=== PATIENT | female | born 2000 | race Caucasian/White ===

== ENCOUNTER 2019-09-18 07:00 | Inpatient (IN) | payer MEDICAID, SELFPAY ==
[2019-09-18] VITALS (128 sets, daily range): BP systolic 0–162; BP diastolic 0–110; PULSE 68–116; RESP 16–20; TEMP 36.5–37.2; O2SAT 89–100; BMI 30.2; BMI 29.0
[2019-09-18 06:59] LABS: Basophils % 0.1 %; Eosinophils # 0.1 10^3/uL (0.0-0.8); Eosinophils % 0.4 %; Hemoglobin 9.9 g/dL (11.5-15.3); Lymphocytes # 2.1 10^3/uL (0.8-4.8); Lymphocytes % 14.3 %; Mean Corpuscular HGB Conc 31.9 g/dL (30.0-36.0); Mean Corpuscular Hemoglobin 28.2 pg (28.0-34.0); Mean Corpuscular Volume 88.3 fL (81-99); Mean Platelet Volume 12.2 fL (7.4-10.4); Monocytes # 0.7 10^3/uL (0.2-0.9); Monocytes % 4.8 %; Neutrophils # 11.8 10^3/uL (1.8-7.7); Neutrophils % 79.9 %; Nucleated Red Blood Cells % 0 %; Platelet Count 249 10^3/cmm (130-400); Red Blood Count 3.51 10^6/uL (4.1-5.3); Red Cell Distribution Width 12.5 % (12.1-15.1); White Blood Count 14.8 10^3/uL (4.0-10.0)
[2019-09-18] MEDS: fentaNYL 50 mcg/mL INJ 2mL IV (07:02)
[2019-09-18] MEDS: ampicillin 2,000 MG in sodium chloride 0.9% (plus) 50 ML 100 MG IV (07:40)
[2019-09-18] MEDS: dextrose 5%-lactated ringers 1,000 ML 125 ML IV (07:40)
[2019-09-18] MEDS: lactated ringers 1,000 ML 999 ML IV (09:13)
[2019-09-18] MEDS: ondansetron 2 mg/ML SDV 2 mL 4 MG IVP (10:06)
--- NOTE | 2019-09-18 10:43 | P.ANES_ITS ---
Pre-Anesthetic Assessment Pre-Anesthetic Assessment: Height/Weight: Height 1.57 m Weight 72.121 kg Temp Pulse Resp BP Pulse Ox 98.6 F 86 20 H 130/83 100 09/18/19 06:08 09/18/19 10:40 09/18/19 07:02 09/18/19 10:40 09/18/19 10:40 Preop Diagnosis: labor pain Proposed Procedure: epidural Familial anesthetic complications: none specified Social: Social History: No alcohol and No tobacco Exam: Pre-Anes Outpt Exam: alert, oriented x 3, clear to auscultation bilaterally and regular rate & rhythm Airway: Submandibular: WNL Cervical ROM: WNL MP: 2 Dentition: Chipped History/ROS: Other Pulmonary: Pulmonary: None reported CV/HEM: CV/HEM: None reported : : None reported Hepatic: Hepatic: None reported GI: GI: None reported Metabolic: Metabolic: None reported Musc/skel: Musc/skel: Lower Back Pain (with ) Neuropsych: Neuropsych: None reported Anesthetic Plan: ASA status: II Anesthesia: Regional (specify below) (epidural) Risk of > 500 ml blood loss (7ml/kg in children): No Other Pertinent Information: assessment done prior to placement but could not be documented before due to time sensitive need for epidural Meds/Allergies Current Medications: Current Medications Generic Name Dose Route Start Last Admin Trade Name Freq PRN Reason Stop Dose Admin Fentanyl 25 - 100 mcg 09/18/19 06:07 09/18/19 07:02 Sublimaze IV 25 mcg Q1H PRN Administration SEVERE PAIN Dextrose/Lactated Ringer's 1,000 mls @ 125 m ls/hr 09/18/19 06:15 09/18/19 09:13 Dextrose 5%-Lact ated Ringers IV 0 mls/hr .Q8H GODFREY Infusion Lactated Ringer's 1,000 mls @ 999 m ls/hr 09/18/19 06:07 09/18/19 09:13 Lactated Ringers IV 999 mls/hr .Q1H1M PRN Administration Per L&D Rescitati on Protocol Ampicillin Sodium 2,000 mg/ 50 mls @ 100 mls/ hr 09/18/19 07:45 09/18/19 07:40 Sodium Chloride IV 100 mls/hr ONCE GOFDREY Administration Protocol Ondansetron HCl 4 mg 09/18/19 06:07 09/18/19 10:06 Zofran IVP 4 mg Q4H PRN Administration NAUSEA AND VOMITI NG PFSH Anesthesia Female Reproductive History: : 1 Data Anesthesia CBC & Chem 7: 09/18/19 06:45 Other Labs: Laboratory Results - last 48 hr 09/18/19 06:45 WBC 14.8 H RBC 3.51 L Hgb 9.9 L Hct 31.0 L MCV 88.3 MCH 28.2 MCHC 31.9 RDW 12.5 Plt Count 249 MPV 12.2 H Neut % (Auto) 79.9 Lymph % (Auto) 14.3 [place] % (Auto) 4.8 Eos % (Auto) 0.4 Baso % (Auto) 0.1 Neut # (Auto) 11.8 H Lymph # (Auto) 2.1 [place] # (Auto) 0.7 Eos # (Auto) 0.1 Baso # (Auto) 0.0 Nucleated RBC % (auto) 0 Nucleated RBCs # 0.0 Cardiac Studies: No Data to Display
--- NOTE | 2019-09-18 10:45 | ANES.PROC ---
Anesthesia Procedures Procedure/Date: 09/18/19 epidural Procedure Narrative: epidural complete, bolus given, epidural pump initiated with SUPERVISOR FINE GRADING education given, vitals taken using OBIX system and satisfactory throughout, patient admits to decreased pain, report of procedure to OB RN Epidural: Time Out Performed: Yes Consents Signed: Procedure Consent Consent: from patient, from other, risks and benefits reviewed and patient agrees to proceed Lumbar Level: L3-L4 Epidural position: sitting Epidural procedure: sterile prep of area, 1% lidocaine to numb the area, 18 g needle, negative for paresthesia passed, neg for paresthesia, test dose given, 1.5% xylocaine 1:200k epi (5mL), 0.2% Ropivacaine bolus ml (5mL), placed PCEA, no systemic response, sterile dressing applied, L.U.D. no apparent complications and 0.2% Ropiavacaine @ mls/hr (13mL/Hr)
[2019-09-18] MEDS: ampicillin 1,000 MG in sodium chloride 0.9% (plus) 50 ML 100 MG IV (11:16)
--- NOTE | 2019-09-18 14:47 | P.PCNOB_ITS ---
Delivery Note: Date of delivery: 09/18/19 Pre-Delivery Course: The patient presented to the hospital in active labor. An amniotomy was performed. She was placed on GBS protocol. She received 2 doses of antibiotics. She progressed to complete without difficulty. Delivery: DELIVERY: The patient progressed to complete without difficulty. She delivered a male with a weight of 7 pounds 4 ounces with Apgars of 9, 9. The baby was delivered from the JAIRO position. The baby's mouth and nose were suctioned after the infant was delivered and placed on the mother's abdomen. The cord was then clamped and cut. There was no nuchal cord. There was no meconium. The placenta and 3 vessel cord were delivered intact shortly thereafter. The perineum and vaginal vault were carefully examined. There were superficial lacerations on both the left and right vaginal wall as well as the posterior vaginal vault. The laceration in the posterior vaginal vault stopped bleeding with gentle pressure. No repair was required.. Both the mother and the baby were in stable condition. A&P Assessment and plan (1) 39 weeks gestation of : Status: Acute Code(s): Z3A.39 - 39 weeks gestation of (2) Status post vaginal delivery: I anticipate routine care. The patient should be able go home tomorrow afternoon if she has an unremarkable course. Status: Acute (3) Positive GBS test: Status: Acute Code(s): B95.1 - Streptococcus, group B, as the cause of diseases classified elsewhere Coding Level of Care Code Acute Javascript Engineer for Chg Fwd Diagnoses 39 weeks gestation of Z3A.39 Status post vaginal delivery Positive GBS test B95.1
[2019-09-18] MEDS: oxytocin 30 UNIT/500 ML BAG 600 UNIT IV (15:21)
[2019-09-18] MEDS: docusate sodium 100 mg Capsule PO (17:36)
[2019-09-18] MEDS: benzocaine-menthol 78 gm Canister 1 SPRAY TOPICAL (17:37)
[2019-09-18] MEDS: lanolin oint 7 gm 1 APPLIC TOPICAL (17:38)
[2019-09-19 00:25] VITALS: BP 107/48; PULSE 106; RESP 18
[2019-09-19 03:15] LABS: Hematocrit 26.2 % (37.0-47.0); Hemoglobin 8.6 g/dL (11.5-15.3); Mean Corpuscular HGB Conc 32.8 g/dL (30.0-36.0); Mean Corpuscular Hemoglobin 29.1 pg (28.0-34.0); Mean Corpuscular Volume 88.5 fL (81-99); Platelet Count 209 10^3/cmm (130-400); Red Blood Count 2.96 10^6/uL (4.1-5.3); Red Cell Distribution Width 12.6 % (12.1-15.1); White Blood Count 15.1 10^3/uL (4.0-10.0)
[2019-09-19 04:30] VITALS: BP 112/73; PULSE 101; RESP 16; TEMP 36.6
--- NOTE | 2019-09-19 08:41 | PM.OBGYDC ---
Discharge Providers PROPERTY COORDINATOR Date of Admission: 09/18/19 07:00 Date of Discharge: 09/19/19 Attending Provider at Admission: Carmine Chavez MD Attending Provider at Discharge: Carmine Chavez MD Primary Care Provider: Carmine Chavez MD Diagnoses at Discharge Discharge Diagnosis (1) 39 weeks gestation of : Status: Acute (2) Status post vaginal delivery: Status: Acute (3) Positive GBS test: Status: Acute Reason for Visit Reason for Visit: Reason For Visit: CONTRACTIONS Hospital Course Hospital Course: The patient presented with contractions. She was noted to be in active labor. She received an epidural. She progressed to complete and had an unremarkable vaginal delivery. Her course was also unremarkable. She has been breast-feeding with the assistance of the nurses. She has been doing better with a nipple shield. Her bleeding has been within normal limits. Her pain is been well controlled. Information Peripartum Data: Delivery Method: Vaginal Physical Exam Narrative: EXAM NARRATIVE: The patient is alert. She appears comfortable. Her heart has a regular rate and rhythm with no murmurs appreciated. Lungs are clear to auscultation bilaterally. Her fundus is firm and below the umbilicus. Discharge Data Data Completed and Pending: Labs from last 24 hours 09/19/19 03:05 WBC 15.1 H RBC 2.96 L Hgb 8.6 L Hct 26.2 L MCV 88.5 MCH 29.1 MCHC 32.8 RDW 12.6 Plt Count 209 MPV 12.0 H Vitals: Last Vital Signs Temp 97.8 F 09/19/19 04:30 Pulse 101 H 09/19/19 04:30 Resp 16 09/19/19 04:30 BP 112/73 09/19/19 04:30 Pulse Ox 97 09/18/19 22:25 Discharge Plan Discharge Patient Disposition: Home, Self-Care Condition: Stable Prescriptions: New ibuprofen 800 mg Tablet 800 mg PO TID Qty: 45 RF: 0 FeroSul 325 mg (65 mg iron) tablet 325 mg PO DAILY Qty: 90 RF: 0 Continued Tylenol Extra Strength 500 mg Tablet 500 mg PO Q4H PRN (Reason: Pain) RF: 0 28 mg iron- 800 mcg Tablet 800 tab PO DAILY RF: 0 Discharge Orders: Discharge Order (Routine); Ordered 09/19/19 Ordered By: Carmine Chavez Referrals: Carmine Chavez MD [Primary Care Provider] - 6 Weeks (Please call [facility] at [phone] first thing Friday September 20, 2019 to schedule your 6 week follow up visit with Dr. Chavez. Your appointment will need to be 6 weeks from your delivery date.) Discharge Diet: Regular Discharge Activity: Limit activity as instructed Patient Instructions: , Formula Feeding, Perineal Care (DC), Your Baby (DC), and the Working Mom (DC), Expression, Collection and Storage of Breastmilk (DC), How to Hold and Breastfeed Your Baby (DC), and Nipple Soreness (DC), Breast Fullness Versus Breast Engorgement (DC), and Plugged Ducts (DC), Vaginal Delivery (DC), Bleeding (DC), OB Discharge Report, OB Food/Drug Interaction Guide, OB Care at Home, Depression Discharge Date/Time: 09/19/19 18:40 Discharge Attestations PROPERTY COORDINATOR Time Spent in Discharge Care*: less than 30 min Coding Level of Care Code Acute Manager Deli for Chg Fwd Diagnoses 39 weeks gestation of Z3A.39 Status post vaginal delivery Positive GBS test B95.1
[2019-09-19] MEDS: docusate sodium 100 mg Capsule PO (09:53)
[2019-09-19] MEDS: prenatal vitamin Capsule 1 CAP PO (09:53)
[2019-09-19 10:50] VITALS: BP 109/74; PULSE 84; RESP 18; TEMP 36.4; O2SAT 97
--- NOTE | 2019-09-19 13:49 | PC.NURSE ---
This nurse has been at bedside with pt trying to get baby to latch to breast. does not gape mouth open and does not maintain a sustained latch. Mother has been using a nipple shield to help baby latch and mother reports that it has helped. pushes nipple shield out of mouth with tongue. Infant will hold nipple in mouth and suck, however there are no ear or jaw movements present. This nurse demonstrated and discussed hand expression and pt agreed to try. Pt was able to return demonstration appropriately and expressed 1 mL from right breast. Pt expressed for approximately 5 minutes. This nurse encouraged pt to express more, however pt had a visitor at the time and did not want to express in from of visitor. Pt requested to give baby some formula. This nurse brought pt formula and a cup and showed pt how to cup feed. cup fed the 1 mL of expressed breastmilk and approximately 15 mL of formula. Mother return demonstrated cup feeding appropriately.
[2019-09-19 16:52] VITALS: BP 119/74; PULSE 74; RESP 16; TEMP 36.6; O2SAT 97
[2019-09-19 18:30] VITALS: BP 117/70; PULSE 80; RESP 16; TEMP 36.6; O2SAT 98
== END 2019-09-19 18:40 | disposition home or self-care (01) | DRG 807 ==
LOC: OBGYN 12:36 → OPOB 12:36
PROVIDERS: Admitting Provider Family Medicine; Family Provider Electrodiagnostic Medicine; PCP Family Medicine; Visit Provider Family Medicine
DX: O99.824 Streptococcus B carrier state complicating childbirth (principal); Z37.0 Single live birth; Z3A.39 39 weeks gestation of pregnancy; O71.4 Obstetric high vaginal laceration alone; Z23 Encounter for immunization; Z79.899 Other long term (current) drug therapy; Z01.10 Encounter for examination of ears and hearing without abnormal findings
CPT/HCPCS: 12345; 36415; 59409; 85025; 85027; 90686; 96375; 99211; J0290; J2405; J2795; J3010

== ENCOUNTER 2020-07-16 15:16 | Inpatient (IN) | payer MEDICAID, SELFPAY ==
[2020-07-16] VITALS (61 sets, daily range): BP systolic 0–133; BP diastolic 0–85; PULSE 81–144; RESP 15–18; TEMP 36.5–37.1; O2SAT 98–100; BMI 30.2
[2020-07-16 16:17] LABS: SARS Covid-2 Antigen Negative (Negative)
[2020-07-16 16:18] LABS: Basophils % 0.2 %; Eosinophils # 0.1 10^3/uL (0.0-0.8); Eosinophils % 0.5 %; Hematocrit 28.8 % (37.0-47.0); Hemoglobin 8.5 g/dL (11.5-15.3); Lymphocytes # 1.5 10^3/uL (0.8-4.8); Lymphocytes % 14.3 %; Mean Corpuscular HGB Conc 29.5 g/dL (30.0-36.0); Mean Corpuscular Volume 81.4 fL (81-99); Mean Platelet Volume 10.6 fL (7.4-10.4); Monocytes # 0.5 10^3/uL (0.2-0.9); Monocytes % 4.5 %; Neutrophils # 8.26 10^3/uL (1.8-7.7); Neutrophils % 79.9 %; Nucleated Red Blood Cells % 0 %; Platelet Count 249 10^3/cmm (130-400); Red Blood Count 3.54 10^6/uL (4.1-5.3); Red Cell Distribution Width 13.9 % (12.1-15.1); White Blood Count 10.3 10^3/uL (4.0-10.0)
--- NOTE | 2020-07-16 16:23 | P.ANESASSM_ITS ---
Pre-Anesthetic Assessment Pre-Anesthetic Assessment: Height/Weight: Height 1.6 m Weight 77.564 kg Pulse BP 107 H 116/77 07/16/20 16:10 07/16/20 16:10 Preop Diagnosis: labor pain Proposed Procedure: Epidural Familial anesthetic complications: None Was Beta Primo taken within 24 hours: N/A Last intake: Ate 30 minutes before arrival Social: Social History: No alcohol and No tobacco Exam: Pre-Anes Outpt Exam: alert, oriented x 3, clear to auscultation bilaterally and regular rate & rhythm Airway: Cervical ROM: WNL MP: 2 Dentition: Full Anesthetic Plan: ASA status: 2 Anesthesia: Regional (specify below) Risk of > 500 ml blood loss (7ml/kg in children): Yes, adequate IV access and fluids planned [facility] Anesthesia Female Reproductive History: : 2 Data Anesthesia CBC & Chem 7: 07/16/20 15:38 Other Labs: Laboratory Results - last 48 hr 07/16/20 07/16/20 15:38 15:38 WBC 10.3 H RBC 3.54 L Hgb 8.5 L Hct 28.8 L MCV 81.4 MCH 24.0 L MCHC 29.5 L RDW 13.9 Plt Count 249 MPV 10.6 H Neut % (Auto) 79.9 Lymph % (Auto) 14.3 [place] % (Auto) 4.5 Eos % (Auto) 0.5 Baso % (Auto) 0.2 Neut # (Auto) 8.26 H Lymph # (Auto) 1.5 [place] # (Auto) 0.5 Eos # (Auto) 0.1 Baso # (Auto) 0.0 Nucleated RBC % (auto) 0 Nucleated RBCs # 0.0 SARS-CoV-2 Ag (Rapid) Negative Cardiac Studies: No Data to Display
[2020-07-16] MEDS: lactated ringers 1,000 ML 999 ML IV (16:42)
[2020-07-16] MEDS: dextrose 5%-lactated ringers 1,000 ML 125 ML IV ×2 (16:42→22:49)
--- NOTE | 2020-07-16 16:52 | ANES.PROC ---
Anesthesia Procedures Procedure/Date: 07/16/20 Epidural: Time Out Performed: Yes Consents Signed: Procedure Consent and NPO Consent Consent: requested by attending/covering physician, from patient, from other, risks and benefits reviewed and patient agrees to proceed Lumbar Level: L3-L4 Epidural position: sitting Epidural procedure: sterile prep of area, 1% lidocaine to numb the area, 18 g needle, negative for paresthesia passed, neg for paresthesia, test dose given, 1.5% xylocaine 1:200k epi (3 cc), 0.2% Ropivacaine bolus ml (5 cc), placed PCEA, no systemic response, sterile dressing applied, L.U.D. no apparent complications and 0.2% Ropiavacaine @ mls/hr (13) Additional Comments: ANGELA to saline at 4 cm, threaded catheter to 10 cm at skin
--- NOTE | 2020-07-16 17:20 | PC.NURSE ---
CALLED [facility] CRNA AFTER FINDING OUT THAT THEY WERE IN HOUSE CALLED HIM JUST TO LET THEM KNOW THAT SHE WAS HERE AND GETTING HER BOLIS CAUSE THAT THEY COULD COME UP PRIOR TO LEAVING. TOLD HIM THAT WE HAD JUST STARTED HER BOLIS SO HE WAS GOING TO SEND DR. CRAIG UP IN ABOUT 30 MINUTES. TOLD HIM THAT WAS FINE.
[2020-07-16] MEDS: oxytocin 30 UNIT/500 ML BAG 600 UNIT IV (22:49)
--- NOTE | 2020-07-16 22:50 | PM.DELIVERY ---
Delivery Note: Date of delivery: July 16, 2020 Pre-Delivery Course: The patient is a 20-year-old 2 female at 38 weeks estimated gestational age who presented to the hospital with spontaneous rupture of membranes. She believes that her membranes ruptured at 5:00 this morning. After arriving at the hospital, she was found to be 5 cm dilated. She was having regular contractions. Shortly after arriving an epidural was placed. She progressed to complete without difficulty. Her was otherwise unremarkable. Her blood type was a positive. Her glucose screen was negative. Her Covid status was unknown. Otherwise her labs were within normal limits. Delivery: DELIVERY: The patient progressed to complete without difficulty. She delivered a female with a weight of 6 pounds 11 ounces with Apgars of 9, 9. The baby was delivered from the JAIRO position. The baby's mouth and nose were suctioned at the site of the perineum. The baby was then completely delivered and placed on the mother's abdomen. The cord was then clamped and cut. There was no nuchal cord. There was no meconium. The placenta and 3 vessel cord were delivered intact shortly thereafter. The perineum and vaginal vault were carefully examined. No lacerations were noted. Both the mother and the baby were in stable condition. There was 100 mL of blood loss. Post-Delivery Status: Good A&P Assessment and plan (1) 38 weeks gestation of : Anticipate routine care. Status: Acute (2) Spontaneous vaginal delivery: Status: Acute Coding Level of Care Code Acute Junior Systems Administrator for Chg Fwd Diagnoses 38 weeks gestation of Z3A.38 Spontaneous vaginal delivery O80
[2020-07-17] VITALS (14 sets, daily range): BP systolic 107–125; BP diastolic 63–78; PULSE 75–102; RESP 15–18; TEMP 36.6–37.3; O2SAT 98–100
[2020-07-17] MEDS: benzocaine-menthol 78 gm Canister 1 SPRAY TOPICAL (01:35)
[2020-07-17] MEDS: lanolin oint 7 gm 1 APPLIC TOPICAL (01:35)
[2020-07-17] MEDS: HYDROcodone-acetaminophen 5-325 mg Tablet PO (01:55)
--- NOTE | 2020-07-17 06:31 | P.PN_ITS ---
INSTRUMENTATION TECH Subjective Subjective: Interval history: The patient has done very well post delivery. Her bleeding has been within normal limits. Her pain is been well controlled. She is breast-feeding well. There are no concerns. Labor: Station: +1 Amniotic Membrane Status: Leaking Monitor Mode: External Contraction Pattern: Regular Status: Category ll Vitals/I&O/Wt Last Vital Signs Temp 98.5 F 07/17/20 02:45 Pulse 75 07/17/20 06:22 Resp 16 07/17/20 06:22 BP 125/76 07/17/20 06:22 Pulse Ox 100 07/17/20 03:30 07/16/20 07/16/20 07/17/20 14:59 22:59 06:59 Intake Total 1850.083 / 1850.083 500 / 2350.083 Output Total 375 / 375 350 / 725 Balance 1475.083 / 1475.083 150 / 1625.083 Weight last 48 hrs Weight 171 lb Physical Exam Narrative: EXAM NARRATIVE: The patient is alert. She appears comfortable. Her heart has a regular rate and rhythm with no murmurs appreciated. Lungs are clear to auscultation bilaterally. Her fundus is firm and below the umbilicus. Urinary Catheter Management^: Chang: Cath Placed During This Visit: yes, but has since been removed by the nurse Reason for Continuing Indwelling Catheter: Required Immobilization for Trauma or Surgery or Anesthesia Urinary Catheter Date of Insertion: 07/16/20 Urinary Catheter Time of Insertion: 16:50 Date Urinary Catheter Removed: 07/16/20 Time Urinary Catheter Discontinued: 22:14 Data : 07/16/20 15:38 A&P Assessment and plan (1) Spontaneous vaginal delivery: The patient is doing well. I anticipate to be discharged home tomorrow morning. We will continue to work with her on her breast-feeding. Status: Acute (2) 38 weeks gestation of : Status: Acute Attestations Medical Necessity Statement*: Anticipate routine care. Coding Level of Care Code Acute Power System Dispatcher for Chg Fwd Diagnoses Spontaneous vaginal delivery O80 38 weeks gestation of Z3A.38
[2020-07-17] MEDS: acetaminophen 325 mg Tablet 650 MG PO (07:34)
[2020-07-17] MEDS: prenatal vitamin Capsule 1 CAP PO (08:47)
[2020-07-17] MEDS: docusate sodium 100 mg Capsule PO (08:47)
[2020-07-17] MEDS: ibuprofen 800 mg tablet PO ×2 (08:48→15:01)
[2020-07-17 11:42] LABS: Hematocrit 27.5 % (37.0-47.0); Hemoglobin 8.3 g/dL (11.5-15.3); Mean Corpuscular HGB Conc 30.2 g/dL (30.0-36.0); Mean Corpuscular Hemoglobin 24.7 pg (28.0-34.0); Mean Corpuscular Volume 81.8 fL (81-99); Mean Platelet Volume 11.1 fL (7.4-10.4); Platelet Count 209 10^3/cmm (130-400); Red Blood Count 3.36 10^6/uL (4.1-5.3); Red Cell Distribution Width 13.9 % (12.1-15.1); White Blood Count 11.1 10^3/uL (4.0-10.0)
--- NOTE | 2020-07-17 14:08 | ANE.PACU2 ---
Inpatient post-anesthesia follow up: Airway intact: Yes Vital signs: Temperature 98.5 F Pulse Rate 80 Respiratory Rate 18 Blood Pressure 107/70 Pulse Oximetry 98 Oxygen Delivery Me thod Room Air Oxygen Flow Rate Fraction of Inspir ed Oxygen Hydration adequate: Yes Nausea and vomiting: No Pain level: 1 Mental status: Baseline Additional Comments: No signs of infection at neuraxial site, no numbness/weakness in lower extremities, no headaches, urinating with out obrien
[2020-07-18 04:24] VITALS: BP 113/75; PULSE 80; RESP 17; O2SAT 99
--- NOTE | 2020-07-18 08:02 | PM.OBGYDC ---
Discharge Providers ABATTOIR SUPERVISOR Date of Admission: 07/16/20 15:16 Date of Discharge: 07/18/20 Attending Provider at Admission: Carmine Chavez MD Attending Provider at Discharge: Carmine Chavez MD Primary Care Provider: Carmine Chavez MD Diagnoses at Discharge Discharge Diagnosis (1) Spontaneous vaginal delivery: Status: Acute (2) 38 weeks gestation of : Status: Acute (3) Difficulty of mother performing : Status: Acute Reason for Visit Reason for Visit: Vaginal Discharge Hospital Course Hospital Course The patient presented to the hospital with spontaneous rupture of membranes. She progressed to complete without difficulty. She had unremarkable vaginal delivery. Her course has also been unremarkable. Her bleeding has been within normal limits. Her pain is been well controlled. Her breast-feeding overall is gone well. She does have sore nipples, and a breast-feeding consult will meet with her prior to being discharged home. Anticipate to be discharged home today after the consultant rn sees the patient. Information Peripartum Data: Delivery Method: Vaginal Physical Exam Narrative: EXAM NARRATIVE: The patient is alert. She appears comfortable. Her heart has a regular rate and rhythm with no murmurs appreciated. Lungs are clear to auscultation bilaterally. Her fundus is firm and below the umbilicus. Urinary Catheter Management^: Chang: Cath Placed During This Visit: yes, but has since been removed by the nurse Reason for Continuing Indwelling Catheter: Required Immobilization for Trauma or Surgery or Anesthesia Urinary Catheter Date of Insertion: 07/16/20 Urinary Catheter Time of Insertion: 16:50 Date Urinary Catheter Removed: 07/16/20 Time Urinary Catheter Discontinued: 22:14 Discharge Data Data Completed and Pending: Pending at discharge Category Date Time Status Coronavirus Lab T est PTC Stat Lab 07/16/20 15:38 Received Labs from last 24 hours 07/17/20 11:10 WBC 11.1 H RBC 3.36 L Hgb 8.3 L Hct 27.5 L MCV 81.8 MCH 24.7 L MCHC 30.2 RDW 13.9 Plt Count 209 MPV 11.1 H Vitals: Last Vital Signs Temp 97.8 F 07/17/20 15:10 Pulse 80 07/18/20 04:24 Resp 17 07/18/20 04:24 BP 113/75 07/18/20 04:24 Pulse Ox 99 07/18/20 04:24 Discharge Plan Discharge Patient Disposition: Home Condition: Stable Prescriptions: New ibuprofen 800 mg Tablet 800 mg PO TID Qty: 30 RF: 0 Continued PNV [id number] fumarate-FA [] 28 mg iron- 800 mcg Tablet 800 tab PO DAILY RF: 0 ferrous sulfate [FeroSul] 325 mg (65 mg iron) tablet 325 mg PO DAILY Qty: 90 RF: 0 Discharge Orders: Discharge Order (Routine); Ordered 07/18/20 Ordered By: Carmine Chavez Referrals: Carmine Chavez MD [Primary Care Provider] - 6 Weeks Discharge Diet: Regular Discharge Activity: Resume usual activity Patient Instructions: Your Baby (GEN), and the Working Mom (GEN), Expression, Collection and Storage of Breastmilk (GEN), How to Hold and Breastfeed Your Baby (GEN), and Nipple Soreness (GEN), Breast Fullness Versus Breast Engorgement (GEN), How to Increase Your Milk Supply (GEN), and Your Diet (GEN), Vaginal Delivery (DC), Bleeding (GEN), OB Discharge Report, OB Food/Drug Interaction Guide, OB Home Care Discharge Attestations ABATTOIR SUPERVISOR Time Spent in Discharge Care*: less than 30 min Specific Discharge Activities: Specific discharge activities: educating patient and discussing with pcp/other providers Coding Level of Care Code Acute Railway Traction Line Worker for Chg Fwd Diagnoses Spontaneous vaginal delivery O80 38 weeks gestation of Z3A.38 Difficulty of mother performing Z39.1
[2020-07-18 09:06] LABS: Coronavirus Lab Test PTC Negative
[2020-07-18] MEDS: ibuprofen 800 mg tablet PO (09:31)
[2020-07-18] MEDS: prenatal vitamin Capsule 1 CAP PO (09:31)
[2020-07-18] MEDS: docusate sodium 100 mg Capsule PO (09:31)
[2020-07-18 10:38] VITALS: BP 129/80; PULSE 80; RESP 16; TEMP 36.4
[2020-07-18 12:48] VITALS: BP 114/72; PULSE 74; RESP 16; TEMP 36.8
== END 2020-07-18 13:28 | disposition home or self-care (01) | DRG 807 ==
LOC: OPOB 15:22 → OBGYN 22:38
PROVIDERS: Admitting Provider Family Medicine; PCP Family Medicine; Visit Provider Family Medicine
DX: O42.02 Full-term premature rupture of membranes, onset of labor within 24 hours of rupture (principal); Z37.0 Single live birth; Z3A.38 38 weeks gestation of pregnancy
CPT/HCPCS: 12345; 36415; 51702; 59025; 59409; 83986; 85025; 85027; 87426; 87635; 98960; 99211; J2795

== ENCOUNTER 2021-03-30 14:15 | Emergency (ER) | payer MEDICAID, SELFPAY ==
[2021-03-30 16:27] VITALS: BP 125/86; PULSE 95; RESP 15; TEMP 37.3; O2SAT 100; BMI 29.2
[2021-03-30 19:03] LABS: Basophils % 0.4 %; Eosinophils # 0.1 10^3/uL (0.0-0.8); Eosinophils % 0.8 %; Hematocrit 40.6 % (37.0-47.0); Hemoglobin 12.8 g/dL (11.5-15.3); Lymphocytes # 2.2 10^3/uL (0.8-4.8); Lymphocytes % 26.4 %; Mean Corpuscular HGB Conc 31.5 g/dL (30.0-36.0); Mean Corpuscular Volume 92.1 fL (81-99); Monocytes # 0.5 10^3/uL (0.2-0.9); Monocytes % 5.3 %; Neutrophils # 5.63 10^3/uL (1.8-7.7); Neutrophils % 66.7 %; Nucleated Red Blood Cells % 0 %; Platelet Count 308 10^3/cmm (130-400); Red Blood Count 4.41 10^6/uL (4.1-5.3); Red Cell Distribution Width 12.7 % (12.1-15.1); White Blood Count 8.4 10^3/uL (4.0-10.0)
[2021-03-30 19:40] LABS: Alanine Aminotransferase 14 U/L (0-33); Albumin Level 4.3 g/dL (3.5-5.2); Alkaline Phosphatase 80 IU/L (35-105); Anion Gap 14.2 (5-19); Aspartate Amino Transferase 14 U/L (0-32); Blood Urea Nitrogen 8 mg/dL (6-20); Calcium 8.9 mg/dL (8.5-10.5); Carbon Dioxide 23 mmol/L (22-29); Chloride 102 mmol/L (98-107); Globulin 2.9 g/dL (1.3-4.6); Glucose 91 mg/dL (65-115); Osmolality Calculated 278 mOsm/kg (285-295); Potassium 4.2 mmol/L (3.5-5.1); Sodium 135 mmol/L (136-145); Total Bilirubin 0.2 mg/dL (0.15-1.2); Total Protein 7.2 g/dL (6.6-8.7)
[2021-03-31 00:05] VITALS: BP 147/75; PULSE 92; RESP 18; O2SAT 100
--- NOTE | 2021-03-31 00:15 | USR_ITS ---
PROCEDURE INFORMATION: Exam: US First Trimester, Transabdominal and US , Transvaginal Exam date and time: 03/31/2021 12:15 AM Age: 20 years old Clinical indication: Pain; Lmp or gestational age (in weeks): 10w3d; Antepartum complications; Bleeding and other: Cramping; Additional info: Vaginal bleeding, hcg 8000 TECHNIQUE: Imaging protocol: Real-time transabdominal obstetrical ultrasound of the maternal pelvis and a first trimester , less than 14 weeks 0 days, with image documentation. Transvaginal imaging was used for better evaluation of the fetus, adnexa, and/or cervix. COMPARISON: US OB >= 14 weeks fetus [id number] 03/23/2020 1:20 PM FINDINGS: Gestation: No intrauterine gestation. MATERNAL: Uterus: Unremarkable. Cervix: Unremarkable. Right adnexa: Right ovary measures 2.9 x 1.6 x 2.3 cm. Normal ovarian blood flow. There is a cystic structure of the right ovary measuring 1.5 cm. Left adnexa: Left ovary is normal and measures 2.4 x 1.2 x 1.8 cm. . Normal ovarian blood flow. Intraperitoneal space: No free fluid. US/US OB <=14 wk fetus w transvag IMPRESSION: 1. No intrauterine gestation is identified. 2. 1.5 cm cystic structure of the right ovary, likely a corpus luteum. 3. No free fluid.
--- NOTE | 2021-03-31 00:15 | W.ED.PREGNAN ---
HPI - General: Chief complaint: Vaginal Bleeding Stated complaint: 1-3 MO PREG:EXCESSIVE BLEEDING, CRAMPING Time Seen by Provider: 03/31/21 00:15 History of Present Illness: HPI Narrative: Patient comes in today for complaints of vaginal bleeding. Patient is . For last menstrual cycle being January 21. Patient did report some light spotting in January. Patient then reports last 2 weeks had some more spotting until today when she had some increased bleeding. Patient talked to her care provider Dr. Chavez and was recommended to be evaluated in the ER. MD Complaint: vaginal bleeding Review of Systems General: Reports: 10 or more systems reviewed and unremarkable except in HPI and below : Reports: vaginal bleeding Physical Exam Const: COMMON NORMALS: no acute distress and patient oriented x3 GENERAL APPEARANCE: cooperative HENMT: COMMON NORMALS: normocephalic and Normal external nose present HEAD & SCALP: normal to inspection and normocephalic NOSE: Normal external nose present MOUTH: Normal oral and palatal mucosa present Eye: GENERAL EYE: appearance normal, both eyes and all related structures Neck/C-Spine: COMMON NORMALS: full ROM Chest: COMMONS NORMALS: normal inspection of the chest Resp: COMMON NORMALS: normal respiratory effort EFFORT & INSPECTION: Yes able to speak in complete sentences Cardio: COMMON NORMALS: regular rate and regular rhythm RATE: regular rate RHYTHM: regular rhythm GI: COMMON NORMALS: non-tender : COMMON NORMALS: Yes no CVA tenderness BLADDER/KIDNEY EXAM: Yes no CVA tenderness Back/Pelvis: COMMON NORMALS: no CVA tenderness and thoracic and lumbar spine normal to inspection Extremity: COMMON NORMALS: normal to inspection Neuro: COMMON NORMALS: patient oriented x3 and moves all extremities Psych: COMMON NORMALS: mental status grossly normal and cooperative Skin: COMMON NORMALS: no rashes or lesions noted GENERAL SKIN EXAM: no rashes or lesions noted Course Vital Signs: Vital signs: Vital Signs Temperature 98.2 F 03/31/21 02:37 Pulse Rate 82 03/31/21 02:37 Respiratory Rate 16 03/31/21 02:37 Blood Pressure 123/72 03/31/21 02:37 Pulse Oximetry 98 03/31/21 02:37 MDM - OB/Uterine Contractions MDM Narrative: Medical decision making narrative: Patient comes in today for concerns of vaginal bleeding. Patient reports that her last menstrual cycle was the end of December. Patient reports she did note some mild bleeding at the end of January. Patient then reports she started spotting again over the last 2 weeks. Today patient comes in due to increased bleeding and passing of clots. Patient appears well. Patient appears no acute distress. Patient has had 1 previous . On exam abdomen soft nontender. Vital signs are normal. Differential diagnosis includes but not limited to spontaneous miscarriage, abnormal vaginal bleeding, urinary tract infection. Urinalysis had some blood. Laboratory values were unremarkable. Ultrasound of the pelvis noted no sign of product in the uterus. Reviewed exam with patient with recommendations for follow-up with primary care for recheck of hCG level which was 8000 today. Discussed that patient probably miscarried but wanted her to have that rechecked to make sure it was resolving. Reviewed that patient should return to the ER for high fever or worsening bleeding. Patient reported understanding and agreed to plan. Lab Data: Labs: Lab Results 03/30/21 03/30/21 03/30/21 Range/Units 18:45 18:45 18:45 WBC 8.4 (4.0-10.0) 10^3/ uL RBC 4.41 (4.1-5.3) 10^6/u L Hgb 12.8 (11.5-15.3) g/dL Hct 40.6 (37.0-47.0) % MCV 92.1 (81-99) fL MCH 29.0 (28.0-34.0) pg MCHC 31.5 (30.0-36.0) g/dL RDW 12.7 (12.1-15.1) % Plt Count 308 (130-400) 10^3/c mm MPV 11.0 H (7.4-10.4) fL Neut % (Auto) 66.7 % Lymph % (Auto) 26.4 % Duchesne % (Auto) 5.3 % Eos % (Auto) 0.8 % Baso % (Auto) 0.4 % Neut # (Auto) 5.63 (1.8-7.7) 10^3/u L Lymph # (Auto) 2.2 (0.8-4.8) 10^3/u L Duchesne # (Auto) 0.5 (0.2-0.9) 10^3/u L Eos # (Auto) 0.1 (0.0-0.8) 10^3/u L Baso # (Auto) 0.0 (0.0-0.1) 10^3/u L Nucleated RBC % (a uto) 0 % Nucleated RBCs # 0.0 /100WBC Sodium 135 L (136-145) mmol/L Potassium 4.2 (3.5-5.1) mmol/L Chloride 102 (98-107) mmol/L Carbon Dioxide 23 (22-29) mmol/L Anion Gap 14.2 (5-19) BUN 8 (6-20) mg/dL Creatinine 0.6 (0.5-0.9) mg/dL GFR Calculation 125.0 (90-130) mL/min Glucose 91 (65-115) mg/dL Calculated Osmolal ity 278 L (285-295) mOsm/k g Calcium 8.9 (8.5-10.5) mg/dL Total Bilirubin 0.2 (0.15-1.2) mg/dL AST 14 (0-32) U/L ALT 14 (0-33) U/L Alkaline Phosphata se 80 (35-105) IU/L Total Protein 7.2 (6.6-8.7) g/dL Albumin 4.3 (3.5-5.2) g/dL Globulin 2.9 (1.3-4.6) g/dL Ser , Raj i-Qnt 8007.00 mIU/mL Urine Color (Yellow) Urine Appearance (CLEAR) Urine pH (5-7) Ur Specific Gravit y (1.005-1.030) Urine Protein (Negative) Urine Glucose (UA) (Normal) Urine Ketones (Negative) Urine Blood (Negative) Urine Nitrate (Negative) Urine Bilirubin (Negative) Urine Urobilinogen (Negative) mg/dL Ur Leukocyte Cristiane ase (Negative) Urine RBC (0-2) /hpf Urine WBC (0-5) /hpf Ur Squamous Epith Cells (0-5) /hpf Amorphous Sediment Urine Bacteria (NONE) /hpf Blood Type A Positive Rho(D) Type Positive / 4+ Antibody Screen Negative 03/31/21 Range/Units 00:15 WBC (4.0-10.0) 10^3/ uL RBC (4.1-5.3) 10^6/u L Hgb (11.5-15.3) g/dL Hct (37.0-47.0) % MCV (81-99) fL MCH (28.0-34.0) pg MCHC (30.0-36.0) g/dL RDW (12.1-15.1) % Plt Count (130-400) 10^3/c mm MPV (7.4-10.4) fL Neut % (Auto) % Lymph % (Auto) % Duchesne % (Auto) % Eos % (Auto) % Baso % (Auto) % Neut # (Auto) (1.8-7.7) 10^3/u L Lymph # (Auto) (0.8-4.8) 10^3/u L Duchesne # (Auto) (0.2-0.9) 10^3/u L Eos # (Auto) (0.0-0.8) 10^3/u L Baso # (Auto) (0.0-0.1) 10^3/u L Nucleated RBC % (a uto) % Nucleated RBCs # /100WBC Sodium (136-145) mmol/L Potassium (3.5-5.1) mmol/L Chloride (98-107) mmol/L Carbon Dioxide (22-29) mmol/L Anion Gap (5-19) BUN (6-20) mg/dL Creatinine (0.5-0.9) mg/dL GFR Calculation (90-130) mL/min Glucose (65-115) mg/dL Calculated Osmolal ity (285-295) mOsm/k g Calcium (8.5-10.5) mg/dL Total Bilirubin (0.15-1.2) mg/dL AST (0-32) U/L ALT (0-33) U/L Alkaline Phosphata se (35-105) IU/L Total Protein (6.6-8.7) g/dL Albumin (3.5-5.2) g/dL Globulin (1.3-4.6) g/dL Ser , Raj i-Qnt mIU/mL Urine Color Yellow (Yellow) Urine Appearance Clear (CLEAR) Urine pH 6.5 (5-7) Ur Specific Gravit y 1.015 (1.005-1.030) Urine Protein Neg (Negative) Urine Glucose (UA) Norm (Normal) Urine Ketones Negative (Negative) Urine Blood 3+ H (Negative) Urine Nitrate Negative (Negative) Urine Bilirubin Neg (Negative) Urine Urobilinogen Norm (Negative) mg/dL Ur Leukocyte Cristiane ase Negative (Negative) Urine RBC 10-15 H (0-2) /hpf Urine WBC 0-4 H (0-5) /hpf Ur Squamous Epith Cells 0-4 H (0-5) /hpf Amorphous Sediment Not Reportable Urine Bacteria Trace (NONE) /hpf Blood Type Rho(D) Type Antibody Screen Discharge Plan Discharge Patient Disposition: Home Clinical Impression: Spontaneous miscarriage Condition: Stable Prescriptions: No Action PNV cmb#[id number] fumarate-FA [] 28 mg iron- 800 mcg Tablet 800 tab PO DAILY RF: 0 ferrous sulfate [FeroSul] 325 mg (65 mg iron) tablet 325 mg PO DAILY Qty: 90 RF: 0 ibuprofen 800 mg Tablet 800 mg PO TID Qty: 30 RF: 0 Discharge Orders: Discharge ED (Routine); Ordered 03/31/21 Ordered By: Iker Minaya Referrals: Carmine Chavez MD [Primary Care Provider] - Discharge Diet: Usual diet Discharge Activity: Increase activity as tolerated Patient Instructions: Spontaneous Miscarriage (ED), Opioid Safety Activity Restrictions/Additional Instructions: Home and rest. Drink plenty of fluids. Healthy diet and exercise. Use acetaminophen and ibuprofen for pain. Monitor bleeding. We would expect no more than 1 pad an hour. Monitor for fever. Return to the ER for large bleeding or high fever. Follow-up with primary care on Friday for a follow-up appointment with lab work to recheck hCG level. Stand Alone Forms: Work/School Release Coding Level of Care Code ED Quality Assurance Associate for Chg Fwd Exam Comprehensive
[2021-03-31 00:30] LABS: Add Urine Microscopic? YES; Bilirubin Urine Neg (Negative); Blood Urine 3+ (Negative); Glucose Urine UA Norm (Normal); Ketones Urine Negative (Negative); Leukocyte Esterase Urine Negative (Negative); Nitrate Urine Negative (Negative); Protein Urine Neg (Negative); Specific Gravity, Urine 1.015 (1.005-1.030); Urine Appearance Clear (CLEAR); Urine Color Yellow (Yellow); Urobilinogen Urine Norm (Negative); pH Urine 6.5 (5-7)
[2021-03-31 00:32] LABS: Add Urine Culture? Yes; Bacteria Urine TRACE /hpf; Squamous Epithelial Cell Urine 0-4 /hpf (0-5); WBC Urine 0-4 /hpf (0-5)
[2021-03-31 02:37] VITALS: BP 123/72; PULSE 82; RESP 16; TEMP 36.8; O2SAT 98
--- NOTE | 2021-04-03 09:04 | DCPLANNER ---
clinical care manager had message to schedule a follow up appointment for patient with primary care at [facility] [place]. clinical care manager called [facility] [place], gave clinic patients information. A follow up appointment is scheduled for Saturday, April 03, 2021 at 1:[address] Lopez. Patient is aware of appointment.
== END 2021-03-31 02:57 | disposition home or self-care (01) ==
PROVIDERS: Emergency Provider Nurse Practitioner Family; PCP Family Medicine
DX: O03.9 Complete or unspecified spontaneous abortion without complication (principal)
CPT/HCPCS: 36415; 76801; 76817; 80053; 81001; 84702; 85025; 86850; 86900; 87086; 99283

== ENCOUNTER → 2021-05-23 16:56 | Outpatient (BNVA) | payer MEDICAID, SELFPAY | PROVIDERS: PCP Family Medicine; Visit Provider Nurse Practitioner Family | DX: Z20.822 Contact with and (suspected) exposure to COVID-19 (principal) | CPT/HCPCS: 87635 ==

== ENCOUNTER 2022-02-18 06:15 | Outpatient (CLI) | payer MEDICAID, SELFPAY ==
--- NOTE | 2022-02-18 06:15 | US_ITS ---
WS: [id number] ULTRASOUND OB LIMITED TECHNIQUE: Limited ultrasound examination of the fetus. LMP 12/21 CLINICAL INFORMATION: Z34.90 - Encounter for supervision of normal , u... COMPARISON: None. FINDINGS: Cervix is long and closed measuring 4.4 cm Single interuterine gestation. presentation is vertex Placental location is posterior. Placenta grade: 0. heart rate 136 BPM. PEDRO 12.5 cm Anatomy: BDP: 7.0 cm = 28w0d HC: 25.9 cm = 28w1d AC: 23.7 cm = 28w0d FEMUR LENGTH: 5.3 cm = 28w0d Estimated weight: 1161 g., 46 %. EGA by ultrasound: 28w3d DEANDRE by ultrasound: 05/10/2022 US/US OB limited [id number] IMPRESSION: 1. Single intrauterine gestation with vertex presentation. 2. Cervix is long and closed measuring 4.4 CM. 3. Gestational age 28 weeks 3 days with estimated delivery May 10, 2022 4. Placenta is posterior. No evidence of previa.
== END 2022-02-18 06:16 | disposition home or self-care (01) ==
LOC: RAD 06:17
PROVIDERS: PCP Family Medicine; Visit Provider Obstetrics & Gynecology
DX: Z34.90 Encounter for supervision of normal pregnancy, unspecified, unspecified trimester (principal)
CPT/HCPCS: 76815

== ENCOUNTER → 2022-03-22 10:26 | Outpatient (BNVA) | payer MEDICAID, SELFPAY | PROVIDERS: PCP Family Medicine; Visit Provider Obstetrics & Gynecology | DX: Z34.90 Encounter for supervision of normal pregnancy, unspecified, unspecified trimester (principal) | CPT/HCPCS: 80307; 82950; 84315; 84443; 85025; 86592; 86762; 86803; 86850; 86900; 87086; 87340; 87491; 87591; 87661; 87806; 88175 ==

== ENCOUNTER → 2022-04-12 11:10 | Outpatient (BNVA) | payer MEDICAID, SELFPAY | PROVIDERS: PCP Family Medicine; Visit Provider Obstetrics & Gynecology | DX: O09.899 Supervision of other high risk pregnancies, unspecified trimester (principal); O09.30 Supervision of pregnancy with insufficient antenatal care, unspecified trimester; Z3A.00 Weeks of gestation of pregnancy not specified | CPT/HCPCS: 84315; 87081 ==

== ENCOUNTER 2022-05-15 16:00 | Inpatient (IN) | payer MEDICAID, SELFPAY ==
[2022-05-15] VITALS (23 sets, daily range): BP systolic 102–134; BP diastolic 56–94; PULSE 76–120; RESP 16–18; TEMP 36.3–36.7; BMI 30.4
[2022-05-15] MEDS: miSOPROStol 100 mcg tablet 25 MCG VAGINAL (16:06)
[2022-05-15 16:53] LABS: Basophils % 0.2 %; Eosinophils # 0.1 10^3/uL (0.0-0.8); Eosinophils % 0.5 %; Hematocrit 31.8 % (37.0-47.0); Hemoglobin 9.9 g/dL (11.5-15.3); Lymphocytes # 1.5 10^3/uL (0.8-4.8); Lymphocytes % 15.9 %; Mean Corpuscular HGB Conc 31.1 g/dL (30.0-36.0); Mean Corpuscular Hemoglobin 27.7 pg (28.0-34.0); Mean Corpuscular Volume 88.8 fl (81-99); Mean Platelet Volume 11.4 fL (7.4-10.4); Monocytes # 0.5 10^3/uL (0.2-0.9); Monocytes % 4.8 %; Neutrophils # 7.36 10^3/uL (1.8-7.7); Neutrophils % 78.1 %; Nucleated Red Blood Cells % 0 %; Platelet Count 237 10^3/cmm (130-400); Red Blood Count 3.58 10^6/uL (4.1-5.3); Red Cell Distribution Width 13.5 % (12.1-15.1); White Blood Count 9.4 10^3/uL (4.0-10.0)
[2022-05-15 16:58] LABS: Amphetamines Screen Urine Negative (Negative); Barbiturates Screen Urine Negative (Negative); Benzodiazepines Screen Urine Negative (Negative); Cocaine Screen Urine Negative (Negative); Opiate Screen Urine Negative (Negative); PCP Screen Urine Negative (Negative); THC Screen Urine Negative (Negative)
[2022-05-15] MEDS: fentaNYL 50 mcg/mL INJ 2mL IVP (19:19)
[2022-05-15] MEDS: lactated ringers 1,000 ML 999 ML IV (19:20)
[2022-05-15] MEDS: oxytocin 30 UNIT/500 ML BAG 600 UNIT IV (19:55)
--- NOTE | 2022-05-15 20:06 | PM.OPHPUD ---
Labor & Delivery H&P Update Date of Procedure: May 15, 2022 Date H&P Performed: 05/09/22 H&P update information: I have reviewed H&P completed within last 30 days, I have examined patient prior to procedure and No changes to prior documentation Admission Diagnosis: iup@40w5d Preop diagnosis: induction of labor Related Problem List Diagnoses (1) Late care: (2) Supervision of other high-risk :
--- NOTE | 2022-05-15 20:07 | PM.DELIVERY ---
Delivery Note: Date of delivery: May 15, 2022 Pre-delivery diagnoses: iup@40w5d Post-delivery diagnoses: same-delivered Procedure: Delivering Physician: Juan Pablo Estimated blood loss (mL): 10 Findings: term female in the JAIRO presentation with a single nuchale cord and body cord Pre-Delivery Course: The patient was admitted for induction at term. She had a single dose of cytotec and began to have contractions. She had SROM at 5 cm dilation. She moved rapidly after that and had complete cervical dilation Delivery: The patient had complete cervical dilation and began to push. The head delivered in the JAIRO position over an intact perineum under no anesthesia. The nose and mouth were bulb suctioned. The shoulders and body delivered atraumatically. The baby was placed onto the mother's abdomen. The cord was clamped and cut. The placenta delivered spontaneously. It was inspected and found to be intact. Inspection of the perineum revealed no laceration and no repair was required. Estimated blood loss 10 mL. Apgars on baby were 8 at 1 minute and 9 at 5 minutes. Weight of baby is 7 pounds 15 ounces. Mother and baby were stable post delivery. History History History 4 Term 2 0 Miscarriages/Ectopic 1 Living Children 2 Coding Level of Care Code Acute Banking Management Consulting Manager for Chg Jeffery
[2022-05-15] MEDS: ibuprofen 800 mg tablet PO (21:57)
[2022-05-15] MEDS: lanolin oint 7 gm 1 APPLIC TOPICAL (21:57)
[2022-05-15] MEDS: benzocaine-menthol 78 gm Canister 1 SPRAY TOPICAL (21:57)
[2022-05-16 00:48] VITALS: BP 109/70; PULSE 101; RESP 17; TEMP 36.8
[2022-05-16 02:34] VITALS: BP 107/71; PULSE 74; RESP 17; TEMP 36.9
[2022-05-16 03:26] VITALS: BP 115/80; PULSE 80; RESP 16
[2022-05-16 09:35] VITALS: BP 109/75; PULSE 84; RESP 17; TEMP 36.7
[2022-05-16] MEDS: ibuprofen 800 mg tablet PO ×2 (10:18→20:41)
[2022-05-16] MEDS: docusate sodium 100 mg Capsule PO ×2 (10:18→20:41)
[2022-05-16] MEDS: prenatal vitamin Capsule 1 CAP PO (10:18)
--- NOTE | 2022-05-16 11:54 | P.PN_ITS ---
Vitals/I&O/Wt Last Vital Signs Temp 98.4 F 05/16/22 02:34 Pulse 80 05/16/22 03:26 Resp 16 05/16/22 03:26 BP 115/80 05/16/22 03:26 O2 Del Method 05/15/22 17:00 05/15/22 05/16/22 05/16/22 22:59 06:59 14:59 Intake Total 716.25 / 716.25 883.75 / 1600.00 Output Total 200 / 200 Balance 716.25 / 716.25 683.75 / 1400.00 Weight last 48 hrs Weight 172 lb Physical Exam Narrative: The patient is doing well. No concerns this morning. She wishes to go home tomorrow morning. Const: COMMON NORMALS: no acute distress, average body habitus, patient oriented x3, no limitations, healthy appearing, alert and well nourished GENERAL APPEARANCE: cooperative, comfortable, well kempt and well developed ORIENTATION/CONSCIOUSNESS: Yes awake, Yes oriented to person, Yes oriented to place and Yes oriented to time Resp: COMMON NORMALS: normal respiratory effort EFFORT & INSPECTION: Yes able to speak in complete sentences GI: COMMON NORMALS: Soft to palpation and non-tender PALPATION: Yes Soft to palpation Extremity: COMMON NORMALS: no calf tenderness Neuro: COMMON NORMALS: patient oriented x3 SENSORIUM/ORIENTATION: Yes alert, Yes oriented to person, Yes oriented to place and Yes oriented to time Psych: APPEARANCE: Yes well kempt Data : 05/15/22 15:30 Attestations Medical Necessity Statement*: The patient had a vaginal delivery. She will be here for 2 midnights. Coding Level of Care Code Acute Trade Show Coordinator for Tigist Gil
[2022-05-16 13:17] LABS: Hematocrit 31.5 % (37.0-47.0); Hemoglobin 9.9 g/dL (11.5-15.3); Mean Corpuscular HGB Conc 31.4 g/dL (30.0-36.0); Mean Corpuscular Hemoglobin 27.9 pg (28.0-34.0); Mean Corpuscular Volume 88.7 fl (81-99); Mean Platelet Volume 11.5 fL (7.4-10.4); Platelet Count 231 10^3/cmm (130-400); Red Blood Count 3.55 10^6/uL (4.1-5.3); Red Cell Distribution Width 13.6 % (12.1-15.1); White Blood Count 10.7 10^3/uL (4.0-10.0)
[2022-05-16 17:19] VITALS: BP 112/83; PULSE 83; RESP 17; TEMP 36.8
[2022-05-16 22:35] VITALS: BP 134/74; PULSE 71; RESP 16
[2022-05-17 03:40] VITALS: BP 124/83; PULSE 68; RESP 16; TEMP 36.8
--- NOTE | 2022-05-17 08:36 | PM.DCS ---
Discharge Providers Date of Admission: 05/15/22 16:00 Date of Discharge: May 17, 2022 Attending Provider at Admission: Alexandra Almeida MD Attending Provider at Discharge: Alexandra Almeida MD Primary Care Provider: Carmine Chavez MD Diagnoses at Discharge Discharge Diagnosis (1) Late care: Status: Acute (2) Supervision of other high-risk : Status: Acute Reason for Visit Reason for Visit: INDUCTION Hospital Course Hospital Course The patient was admitted for induction at term. She had spontaneous delivery of a term . She did well postoperatively and was ready for discharge. Physical Exam Narrative: doing well this morning. normal lochia. is going well. ready for discharge Const: COMMON NORMALS: no acute distress, average body habitus, patient oriented x3, no limitations, healthy appearing, alert and well nourished GENERAL APPEARANCE: cooperative, comfortable, well kempt and well developed ORIENTATION/CONSCIOUSNESS: Yes awake, Yes oriented to person, Yes oriented to place and Yes oriented to time Resp: COMMON NORMALS: normal respiratory effort EFFORT & INSPECTION: Yes able to speak in complete sentences GI: COMMON NORMALS: Soft to palpation and non-tender PALPATION: Yes Soft to palpation Extremity: COMMON NORMALS: no clubbing, cyanosis or edema and no calf tenderness Neuro: COMMON NORMALS: patient oriented x3 SENSORIUM/ORIENTATION: Yes alert, Yes oriented to person, Yes oriented to place and Yes oriented to time Psych: COMMON NORMALS: mental status grossly normal, Normal thought process present, cooperative, normal affect and speech normal APPEARANCE: Yes well kempt SPEECH: Yes normal speech THOUGHT PROCESS: Normal thought process present Discharge Data Studies Completed and Pending Laboratory Results WBC 10.7 10^3/uL (4.0-10.0) H 05/16/22 12:45 RBC 3.55 10^6/uL (4.1-5.3) L 05/16/22 12:45 Hgb 9.9 g/dL (11.5-15.3) L 05/16/22 12:45 Hct 31.5 % (37.0-47.0) L 05/16/22 12:45 MCV 88.7 fl (81-99) 05/16/22 12:45 MCH 27.9 pg (28.0-34.0) L 05/16/22 12:45 MCHC 31.4 g/dL (30.0-36.0) 05/16/22 12:45 RDW 13.6 % (12.1-15.1) 05/16/22 12:45 Plt Count 231 10^3/cmm (130-400) 05/16/22 12:45 MPV 11.5 fL (7.4-10.4) H 05/16/22 12:45 Neut % (Auto) 78.1 % 05/15/22 15:30 Lymph % (Auto) 15.9 % 05/15/22 15:30 Letcher % (Auto) 4.8 % 05/15/22 15:30 Eos % (Auto) 0.5 % 05/15/22 15:30 Baso % (Auto) 0.2 % 05/15/22 15:30 Neut # (Auto) 7.36 10^3/uL (1.8-7.7) 05/15/22 15:30 Lymph # (Auto) 1.5 10^3/uL (0.8-4.8) 05/15/22 15:30 Letcher # (Auto) 0.5 10^3/uL (0.2-0.9) 05/15/22 15:30 Eos # (Auto) 0.1 10^3/uL (0.0-0.8) 05/15/22 15:30 Baso # (Auto) 0.0 10^3/uL (0.0-0.1) 05/15/22 15:30 Nucleated RBC % (auto) 0 % 05/15/22 15:30 Nucleated RBCs # 0.0 /100WBC 05/15/22 15:30 Urine Opiates Screen Negative ng/mL (Negative) 05/15/22 15:40 Ur Barbiturates Screen Negative ng/mL (Negative) 05/15/22 15:40 Ur Phencyclidine Scrn Negative ng/mL (Negative) 05/15/22 15:40 Ur Amphetamines Screen Negative ng/mL (Negative) 05/15/22 15:40 U Benzodiazepines Scrn Negative ng/mL (Negative) 05/15/22 15:40 Urine Cocaine Screen Negative ng/mL (Negative) 05/15/22 15:40 U Marijuana (THC) Screen Negative ng/mL (Negative) 05/15/22 15:40 Vitals Last Vital Signs Temp 98.2 F 05/17/22 03:40 Pulse 68 05/17/22 03:40 Resp 16 05/17/22 03:40 BP 124/83 05/17/22 03:40 O2 Del Method 05/16/22 22:35 Discharge Plan Discharge Patient Disposition: Home Condition: Stable Prescriptions: New ibuprofen 800 mg Tablet 800 mg PO TID Qty: 30 0RF Continued ferrous sulfate 325 mg (65 mg iron) tablet 325 mg PO TID Alive Premium 120 mcg-25 mg- 66.7 mg tablet,chewable 1 tab PO DAILY Discharge Orders: Discharge Order (Routine); Ordered 05/17/22 Ordered By: Alexandra Almeida Referrals: Alexandra Almeida MD [Physician] - 05/29/22 1:45 pm Patient Instructions: Depression (DC), Bleeding (DC), Preeclampsia and Eclampsia After Delivery (GEN), Hemorrhage (DC), OB Discharge Report, OB Food/Drug Interaction Guide, OB Care at Home, Opioid Safety, OB Home Care, OB Vaginal Deliveries - [facility] Discharge Attestations Time Spent in Discharge Care*: less than 30 min Quality Metrics Clinical Quality Measures [ No reported AMI, CVA or VTE this stay] Coding Level of Care Code Acute Chg FW DC note Diagnoses Late care O09.30 Supervision of other high-risk O09.899
[2022-05-17] MEDS: prenatal vitamin Capsule 1 CAP PO (08:56)
[2022-05-17] MEDS: docusate sodium 100 mg Capsule PO (08:56)
[2022-05-17] MEDS: ibuprofen 800 mg tablet PO (08:56)
[2022-05-17 11:11] VITALS: BP 108/72; PULSE 73; RESP 16; TEMP 36.7; O2SAT 98
== END 2022-05-17 11:28 | disposition home or self-care (01) | DRG 807 ==
LOC: OPOB 20:07 → OBGYN 20:07
PROVIDERS: Admitting Provider Obstetrics & Gynecology; PCP Family Medicine; Visit Provider Obstetrics & Gynecology
DX: O48.0 Post-term pregnancy (principal); Z37.0 Single live birth; Z3A.40 40 weeks gestation of pregnancy; O69.81X0 Labor and delivery complicated by cord around neck, without compression, not applicable or unspecified
CPT/HCPCS: 36415; 59025; 59409; 80306; 85025; 85027; J3010

== ENCOUNTER 2025-08-29 21:43 | Emergency (ER) | payer MEDICAID, SELFPAY ==
[2025-08-29 21:46] VITALS: BP 131/95; PULSE 79; RESP 18; TEMP 36.5; O2SAT 100; BMI 32.9
[2025-08-29 22:17] LABS: Hematocrit 42.4 % (36-47); Hemoglobin 13.70 g/dL (11.27-16.99); Mean Corpuscular HGB Conc 32.3 g/dL (30-55); Mean Corpuscular Hemoglobin 30.3 pg (27-33); Mean Corpuscular Volume 93.8 fl (85-98); Nucleated Red Blood Cells % 0 %; Platelet Count 315 10^3/cmm (157-399); Red Blood Count 4.52 10^6/uL (3.85-5.65); White Blood Count 7.21 10^3/uL (3.29-11.43)
[2025-08-29 22:53] LABS: Alanine Aminotransferase 18 U/L (0-33); Albumin Level 4.8 g/dL (3.5-5.2); Alkaline Phosphatase 74 U/L (35-105); Anion Gap 15.3 (5-19); Aspartate Amino Transferase 17 U/L (0-32); Blood Urea Nitrogen 12 mg/dL (6-20); Calcium 9.4 mg/dL (8.5-10.5); Carbon Dioxide 25 mmol/L (22-29); Chloride 104 mmol/L (98-107); Globulin 2.8 g/dL (1.3-4.6); Glucose 100 mg/dL (65-115); Lipase 39 U/L (13-60); Osmolality Calculated 290 mOsm/kg (285-295); Potassium 4.3 mmol/L (3.5-5.1); Sodium 140 mmol/L (136-145); Total Protein 7.6 g/dL (6.6-8.7)
[2025-08-29 23:11] LABS: Glucose Urine UA Negative (Normal); Nitrate Urine Negative (Negative); Specific Gravity, Urine 1.028 (1.005-1.030)
[2025-08-29 23:16] LABS: Add Urine Microscopic? YES
[2025-08-29 23:32] VITALS: BP 128/98; PULSE 80; RESP 16; O2SAT 97
[2025-08-29] MEDS: hyoscyamine ODT 0.125 mg Tablet PO (23:34)
[2025-08-29] MEDS: lidocaine 2% viscous 15 ML, aluminum-mag hydrox-simethicon 30 ML, sucralfate oral liq 1 GM PO (23:34)
--- NOTE | 2025-08-29 23:36 | ED_ITS ---
HPI - General Adult 2 General: Chief complaint: Abdominal Pain Stated complaint: ABD Pain Time Seen by Provider: 08/29/25 22:53 History of Present Illness: Patient is a previously healthy 25-year-old female presenting with a chief complaint of periumbilical and epigastric burning pain. She states she has also had diarrhea since Friday. She has not had a fever. She denies upper respiratory symptoms. Patient denies shortness of breath, chest pain or cough. She denies any significant nausea or vomiting. Patient states that she was feeling better after a couple of days and ate a spicy chicken sandwich which exacerbated her symptoms. Patient denies dysuria or hematuria. She denies possibility of and states she has an IUD implant. She denies any new sexual partners, pelvic pain or pain with intercourse or abnormal vaginal discharge. Patient denies blood in stool. She does not have any history of abdominal surgeries. She has not tried anything today for discomfort or pain. Related Data Home Medications ?Medication ?Instructions ?Recorded ?Confirmed levonorgestrel (Mirena) intrauterine 07/01/22 Previous Rx's ?Medication ?Instructions ?Recorded hyoscyamine sulfate 0.125 mg tablet 0.125 mg PO QID NE N dyspepsia, 08/29/25 abdominal cramps #30 tabs Allergies Allergy/AdvReac Type Severity Reaction Status Date / Time No Known Drug Allergies Allergy Unknown Verified 08/29/25 21:52 [facility] ED 2 [facility]: Medical History (Updated 08/29/25 @ 23:43 by Yisel Nelson MD) Contraception, device intrauterine Placement 06/2022 Normal spontaneous vaginal delivery A1 with last 05/15/2022, Dr. Almeida History of back pain Family History Grandfather Diabetes maternal and paternal Grandmother Diabetes maternal and paternal Denies family history of Colon cancer Ovarian cancer Hypercholesteremia Breast cancer Hypertension Uterine cancer Thyroid disease Stroke Social History Smoking and tobacco/nicotine status: never used tobacco/nicotine Physical Exam 2 Narrative: EXAM NARRATIVE: Vital signs were reviewed. Patient is alert and oriented. Patient is breathing comfortably, no increased WOB or accessory muscle use. SpO2 is above 95% on RA. Patient has clear lungs b/l, no rhonchi, wheezing or crackles. No hypotension or tachycardia. Abdomen is soft, nondistended and nontender. No CVA tenderness with percussion. Patient is moving all extremities, no deformity or gross injury. No lower extremity edema or asymmetry. Course 2 Vital Signs: Vital signs: Vital Signs Temperature 97.7 F 08/29/25 21:46 Pulse Rate 80 08/29/25 23:32 Respiratory Rate 16 08/29/25 23:32 Blood Pressure 128/98 08/29/25 23:32 Pulse Oximetry 97 08/29/25 23:32 Oxygen Delivery Me thod Room Air 08/29/25 23:32 MDM - General Adult Medical Decision Making 25yo female with a chief complaint of periumbilical and epigastric abdominal pain, burning, associated with diarrhea. Symptoms worsened by eating a spicy chicken sandwich. Differential diagnosis includes, but is not limited to, pancreatitis, cholecystitis, gastroenteritis, gastritis, appendicitis, urinary tract infection, pyelonephritis, nephrolithiasis, SBO, diverticulitis, other. On initial exam, patient is hemodynamically stable and nontoxic appearing. Abdominal exam is benign. Patient was evaluated with CBC, CMP, lipase, UA and screen. She was treated w/PO tylenol, hyoscyamine and GI cocktail. Patient has a normal white blood cell count and is not anemic. She does not have any actionable electrolyte abnormalities. She has normal liver function, lipase. Patient is not . UA does not demonstrate evidence of a urinary tract infection. Presentation is consistent with gastritis without bleeding and diarrhea. Patient is appropriate for outpatient management. Patient was counseled on supportive care at home, given return precautions and discharged in stable condition with recommendation for outpatient follow-up with primary care nurse or doctor. Lab Data 08/29/25 22:10 08/29/25 22:10 Laboratory Results WBC 7.21 10^3/uL (3.29-11.43) 08/29/25 22:10 RBC 4.52 10^6/uL (3.85-5.65) 08/29/25 22:10 Hgb 13.70 g/dL (11.27-16.99) 08/29/25 22:10 Hct 42.4 % (36-47) 08/29/25 22:10 MCV 93.8 fl (85-98) 08/29/25 22:10 MCH 30.3 pg (27-33) 08/29/25 22:10 MCHC 32.3 g/dL (30-55) 08/29/25 22:10 RDW 11.8 % (12.1-15.1) L 08/29/25 22:10 Plt Count 315 10^3/cmm (157-399) 08/29/25 22:10 MPV 10.8 fL (7.4-10.4) H 08/29/25 22:10 Neut % (Auto) 62.3 % 08/29/25 22:10 Lymph % (Auto) 31.8 % 08/29/25 22:10 [place] % (Auto) 4.2 % 08/29/25 22:10 Eos % (Auto) 1.0 % 08/29/25 22:10 Baso % (Auto) 0.6 % 08/29/25 22:10 Neut # (Auto) 4.50 10^3/uL (1.8-7.7) 08/29/25 22:10 Lymph # (Auto) 2.3 10^3/uL (0.8-4.8) 08/29/25 22:10 [place] # (Auto) 0.3 10^3/uL (0.2-0.9) 08/29/25 22:10 Eos # (Auto) 0.1 10^3/uL (0.0-0.8) 08/29/25 22:10 Baso # (Auto) 0.0 10^3/uL (0.0-0.1) 08/29/25 22:10 Nucleated RBC % (auto) 0 % 08/29/25 22:10 Nucleated RBCs # 0.0 /100WBC 08/29/25 22:10 Sodium 140 mmol/L (136-145) 08/29/25 22:10 Potassium 4.3 mmol/L (3.5-5.1) 08/29/25 22:10 Chloride 104 mmol/L (98-107) 08/29/25 22:10 Carbon Dioxide 25 mmol/L (22-29) 08/29/25 22:10 Anion Gap 15.3 (5-19) 08/29/25 22:10 BUN 12 mg/dL (6-20) 08/29/25 22:10 Creatinine 0.8 mg/dL (0.5-0.9) 08/29/25 22:10 GFR Calculation 86.0 mL/min (90-130) L 08/29/25 22:10 Glucose 100 mg/dL (65-115) 08/29/25 22:10 Calculated Osmolality 290 mOsm/kg (285-295) 08/29/25 22:10 Calcium 9.4 mg/dL (8.5-10.5) 08/29/25 22:10 Total Bilirubin 0.3 mg/dL (0.15-1.2) 08/29/25 22:10 AST 17 U/L (0-32) 08/29/25 22:10 ALT 18 U/L (0-33) 08/29/25 22:10 Alkaline Phosphatase 74 U/L (35-105) 08/29/25 22:10 Total Protein 7.6 g/dL (6.6-8.7) 08/29/25 22:10 Albumin 4.8 g/dL (3.5-5.2) 08/29/25 22:10 Globulin 2.8 g/dL (1.3-4.6) 08/29/25 22:10 Lipase 39 U/L (13-60) 08/29/25 22:10 Ser , Semi-Qnt < 1.00 mIU/mL 08/29/25 22:10 Urine Color Yellow (Yellow) 08/29/25 22:42 Urine Appearance Clear (CLEAR) 08/29/25 22:42 Urine pH 6.5 (5-7) 08/29/25 22:42 Ur Specific [place] 1.028 (1.005-1.030) 08/29/25 22:42 Urine Protein Negative (Negative) 08/29/25 22:42 Urine Glucose (UA) Negative (Normal) 08/29/25 22:42 Urine Ketones Negative (Negative) 08/29/25 22:42 Urine Blood Negative (Negative) 08/29/25 22:42 Urine Nitrate Negative (Negative) 08/29/25 22:42 Urine Bilirubin Negative (Negative) 08/29/25 22:42 Urine Urobilinogen 1.0 mg/dL (Negative) 08/29/25 22:42 Ur Leukocyte Esterase Negative (Negative) 08/29/25 22:42 Urine RBC 0-2 /hpf (0-2) 08/29/25 22:42 Urine WBC 0-5 /hpf (0-5) 08/29/25 22:42 Ur Squamous Epith Cells 0-5 /hpf (0-5) 08/29/25 22:42 Amorphous Sediment Not Reportable 08/29/25 22:42 Urine Bacteria None seen /hpf (NONE) 08/29/25 22:42 Hyaline Casts 0-4 /lpf H 08/29/25 22:42 No radiology studies performed this visit Discharge Plan Discharge Patient Disposition: Home Clinical Impression: Gastritis Qualifiers: Gastritis type: unspecified gastritis Chronicity: acute Gastritis bleeding: w ithout bleeding Qualified Code(s): K29.00 - Acute gastritis without bleeding Diarrhea Qualifiers: Diarrhea type: unspecified type Qualified Code(s): R19.7 - Diarrhea, unspecified Condition: Stable Prescriptions: New hyoscyamine sulfate 0.125 mg tablet 0.125 mg PO QID PRN (Reason: dyspepsia, abdominal cramps) Qty: 30 0RF No Action Mirena 20 mcg/24 hours (7 yrs) 52 mg intrauterine device intrauterine Discharge Orders: Discharge ED (Routine); Ordered 08/29/25 Ordered By: Yisel Nelson Patient Instructions: Abdominal Pain (ED), Opioid Safety, Pain Management, Patient Portal & Lionel Instructions, Gastritis (ED), Acute Diarrhea (ED), [place] Diet - Adult Activity Restrictions/Additional Instructions: Please continue to monitor your condition closely at home. Take Tylenol 500- 1000mg every six hours for pain and inflammation. You may take hyosyamine for abdominal cramps. Continue to hydrate with pedialyte, low sugar gatorade or broth. Consider a bland diet until you are feeling better; avoid alcoholic beverages, NSAIDs (motrin, ibuprofen, aleve, naproxen), caffeine, alcohol, nicotine, very spicy or acidic or fatty foods. You may also use pepto bismol to help slow your diarrhea if not resolving on it's own within a few days. If your condition worsens or additional concerns arise, please return promptly to the emergency department for reassessment. Follow up with your primary care doctor in one week. Print Language: Italian Coding Level of Care Code ED Rip[facility] Man for [facility]
[2025-08-30] VITALS: BP 127/78; PULSE 71; RESP 16; O2SAT 100
== END 2025-08-30 00:02 | disposition home or self-care (01) ==
PROVIDERS: Emergency Provider Emergency Medicine
DX: K29.00 Acute gastritis without bleeding (principal); R19.7 Diarrhea, unspecified
CPT/HCPCS: 36415; 80053; 81001; 83690; 84702; 85025; 99283; J9999